=== PATIENT | female | born 2000 | race Two or more races ===

== ENCOUNTER 2019-09-30 21:02 | Emergency (ER) | payer MEDICAID ==
[~2019-09-30] VITALS: Ht 167.6 cm; Wt 63.6 kg
[2019-10-01] MEDS ORDERED: GuaiFENesin/D-METHORPHAN [SUGAR-FREE] 200-20MG/10 ML SYRUP UDCUP PO ONE (01:00)
[2019-10-01] MEDS ORDERED: ACETAMINOPHEN 500 MG TABLET PO ONE (01:00)
[2019-10-01 01:10] VITALS: BP 125/75
== END 2019-10-01 01:10 | disposition home or self-care (01) ==
LOC: EMS 21:03
DX: U07.1 COVID-19 (principal); J06.9 Acute upper respiratory infection, unspecified
CPT/HCPCS: 87635